=== PATIENT | male | born 1970 ===

== ENCOUNTER 2018-04-21 01:05 | Emergency (ER) | payer OTHER ==
[2018-04-21] MEDS ORDERED: Ammonia 2% Inhalant ONE (01:20)
[2018-04-21 01:49] LABS: BASO % 0.6 % (0.0-2.0); EOS % 0.4 % (0.0-4.0); HEMOGLOBIN 15.2 g/dL (12.0-18.0); LYMPH # 1.7 K/uL (1.0-4.3); LYMPH % 29.2 % (20.0-40.0); MEAN CELL VOLUME 86.4 fl (80.0-94.0); MEAN CORPUSCULAR HGB CONC 33.6 g/dL (33.0-37.0); MEAN PLATELET VOLUME 8.1 fl (7.2-11.7); MONO # 0.5 K/uL (0.0-0.8); MONO % 8.8 % (0.0-10.0); NEUT # 3.5 K/uL (1.8-7.0); NRBC % 0.1 % (0.0-0.0); RBC 5.25 Mil/uL (4.40-5.90); RED CELL DISTRIBUTION WIDTH 14.1 % (11.5-14.5); WHITE BLOOD COUNT 5.8 K/uL (4.8-10.8)
--- NOTE | 2018-04-21 01:51 | ED PDOC ---
HPI: Psych/Substance Abuse Time Seen by Provider: 04/21/18 01:15 Chief Complaint (Nursing): Alcohol Ingestion Chief Complaint (Provider): Alcohol Ingestion ED Caveat: Intoxicated History Per: Patient History/Exam Limitations: intoxication Additional Complaint(s): Jered Burns is 47 y/o male who was brought to the ED for public intoxication. Patient unable to answer questions due to inebriated state.. Past Medical History Reviewed: Historical Data, Nursing Documentation, Vital Signs Vital Signs: Last Vital Signs Temp 98.0 F 04/21/18 01:11 Pulse 114 H 04/21/18 01:11 Resp 18 04/21/18 01:11 BP 130/80 04/21/18 01:11 Pulse Ox 95 04/21/18 01:11 - Family History Family History: States: Unknown Family Hx - Social History Alcohol: > 2 Drinks/Day - Allergies Allergies/Adverse Reactions: Allergies Allergy/AdvReac Type Severity Reaction Status Date / Time Unobtainable Allergy Verified 04/21/18 01:20 Review of Systems Review Of Systems: ROS cannot be obtained secondary to pt's inabilty to answer questions. Physical Exam - Reviewed Nursing Documentation Reviewed: Yes - Physical Exam Appears: Positive for: No Acute Distress Head Exam: Positive for: ATRAUMATIC, NORMOCEPHALIC Skin: Positive for: Normal Color, Warm, Dry Neck: Positive for: Normal, Painless ROM, Supple Cardiovascular/Chest: Positive for: Regular Rate, Rhythm. Negative for: Murmur Respiratory: Positive for: Normal Breath Sounds. Negative for: Respiratory Distress Gastrointestinal/Abdominal: Positive for: Normal Exam, Soft. Negative for: Tenderness Back: Positive for: Normal Inspection. Negative for: L CVA Tenderness, R CVA Tenderness Extremity: Positive for: Normal ROM. Negative for: Pedal Edema, Deformity Neurologic/Psych: Positive for: Alert (obtunded but arousable). Negative for: Motor/Sensory Deficits - Laboratory Results Result Diagrams: 04/21/18 01:42 04/21/18 01:42 - ECG O2 Sat by Pulse Oximetry: 95 (RA) Pulse Ox Interpretation: Normal Medical Decision Making Medical Decision Making: Time: 01:20 Impression: 47 y/o intoxicated male Initial Plan: --Alcohol serum --CMP --Drug screen --CBC with differential --Zofran 4 mg IV --Accucheck Time: 05:30 Labs reviewed and show no clinically significant abnormality with exception of blood alcohol level. At this time patient is clinically sober for discharge. Diagnosis is alcohol intoxication Scribe Attestation: Documented by Kali Clark, acting as a scribe for David Amado MD. Provider Scribe Attestation: All medical record entries made by the Scribe were at my direction and personally dictated by me. I have reviewed the chart and agree that the record accurately reflects my personal performance of the history, physical exam, medical decision making, and the department course for this patient. I have also personally directed, reviewed, and agree with the discharge instructions and disposition. Disposition - Clinical Impression Clinical Impression: Alcohol abuse with intoxication - Patient ED Disposition Is Patient to be Admitted: No - Disposition Disposition: Routine/Home Disposition Time: 05:30 Condition: STABLE Additional Instructions: JERED BURNS, thank you for letting us take care of you today. Your provider was David Amado MD and you were treated for ETOH. The emergency medical care you received today was directed at your acute symptoms. If you were prescribed any medication, please fill it and take as directed. It may take several days for your symptoms to resolve. Return to the Emergency Department if your symptoms worsen, do not improve, or if you have any other problems. Please contact your doctor or call one of the physicians/clinics you have been referred to that are listed on the Patient Visit Information form that is included in your discharge packet. Bring any paperwork you were given at discharge with you along with any medications you are taking to your follow up visit. Our treatment cannot replace ongoing medical care by a primary care provider outside of the emergency department. Thank you for allowing the [facility] team to be part of your care today. If you had an X-Ray or CT scan: A Radiologist will review the ED reading if any change in treatment is needed we will contact you. If you had a blood, urine, or wound culture: It will take several days for the results, if any change in treatment is needed we will contact you. If you had an STI test: It will take 48 hours for the results. Please call after 1 week if you have not heard back. Instructions: Effects of Alcohol on Your Health Forms: [facility] (Kiswahili) Print Language: AMERICAN
[2018-04-21 01:56] LABS: ALB/GLOB RATIO 1.4 (1.0-2.1); ALBUMIN 4.6 g/dL (3.5-5.0); ALT/SGPT 98 U/L (21-72); AST/SGOT 39 U/L (17-59); BLOOD UREA NITROGEN 15 mg/dl (9-20); GFR AFRICAN-AMERICAN > 60; GFR NON-AFRICAN AMERICAN > 60
[2018-04-21 05:22] VITALS: BP 116/71; PULSE 74; RESP 16; TEMP 98
[2018-04-21 05:36] VITALS: O2SAT 95
== END 2018-04-21 05:47 | disposition home or self-care (01) ==
LOC: H.ER 01:05
DX: F10.129 Alcohol abuse with intoxication, unspecified (principal)
CPT/HCPCS: 80053; 80320; 82948; 85025; 96372; 99284; J2405